=== PATIENT | female | born 1965 | race Caucasian/White ===

== ENCOUNTER 2016-12-15 21:41 | Emergency (ER) ==
[2016-12-15] MEDS ORDERED: CIPRO 0.3% OPTH SOL OP STA (22:02)
[2016-12-15 22:05] VITALS: BP 137/87; TEMP 97.2; BMI 24.8
--- NOTE | 2016-12-15 22:29 | ED.PDOC ---
General ED Provider: Dr. SAUMYA GUZMÁN Chief Complaint: Eye Problem Stated Complaint: Patient states she started having eye irritation on the right this morning. It is itchy and uncomfortable. Denies any contact with any persons with Conjunctivitis. Denies any changes in vision. Time Seen by Physician: 22:27 Mode of Arrival: Walk-In Information Source: Patient Exam Limitations: No limitations Nursing and Triage Documentation Reviewed and Agree: Yes EENT Complaint Exam - Eye Complaint/Exam Onset/Duration: 1 day Symptoms Are: Still present Timing: Constant Review of Systems - Review Of Systems Constitutional: Reports: No symptoms Eyes: Reports: Drainage, Photophobia, Contact lenses Ears, Nose, Mouth, Throat: Reports: No symptoms Respiratory: Reports: No symptoms Cardiac: Reports: No symptoms GI: Reports: No symptoms : Reports: No symptoms Musculoskeletal: Reports: No symptoms Skin: Reports: No symptoms Neurological: Reports: No symptoms Endocrine: Reports: No symptoms Hematologic/Lymphatic: Reports: No symptoms All Other Systems: Reviewed and Negative Past Medical History - Past Medical History Previously Healthy: Yes Endocrine: Reports: None Cardiovascular: Reports: Hypertension, Other (irrgular hertbeat ) Respiratory: Reports: None Hematological: Reports: None Gastrointestinal: Reports: None Genitourinary: Reports: Kidney stones Neuro/Psych: Reports: Migraine Musculoskeletal: Reports: None Cancer: Reports: None Last Menstrual Period: 20 YEARS AGO Other Pertinent Past Medical History: insomina - Surgical History General Surgical History: Reports: Hysterectomy (partial), Gastric Bypass, Other (Lithrotrypsy) - Family History Family History: Reports: None - Social History Smoking Status: Never smoker Hx Substance Use: No Alcohol Screening: None - Immunizations Tetanus Shot up to Date: Yes Physical Exam - Physical Exam Appearance: Well-appearing, No pain distress, Well-nourished Eyes: LOS, EOMI, Conjunctiva clear ENT: Ears normal, Nose normal, Oropharynx normal Respiratory: Airway patent, Breath sounds clear, Breath sounds equal, Respirations nonlabored Cardiovascular: RRR, Pulses normal, No rub, No murmur GI/: Soft, Nontender, No masses, Bowel sounds normal, No Organomegaly Musculoskeletal: Normal strength, ROM intact, No edema, No calf tenderness Skin: Warm, Dry, Normal color Neurological: Sensation intact, Motor intact, Reflexes intact, Cranial nerves intact, Alert, Oriented Psychiatric: Affect appropriate, Mood appropriate Critical Care Note - Critical Care Note Total Time (mins): 0 Course - Course Orders, Labs, Meds: Orders Category Date Time Status Ciprofloxacin Opth Asya [Cipro 0.3% Opth Asya] MEDS 12/15/16 22:02 Stat 2 drop OP ONCE STA Medications Discontinued Medications Generic Name Dose Route Start Last Admin Trade Name Freapolinar PRN Reason Stop Dose Admin Ciprofloxacin 2 drop 12/15/16 22:02 12/15/16 22:15 Cipro 0.3% Opth Asya OP 12/15/16 22:03 2 drop ONCE STA Administration Vital Signs: Temp Pulse Resp BP Pulse Ox 12/15/16 21:43 97.2 F L 61 20 137/87 100 Departure - Departure Time of Disposition: 22:29 Disposition: HOME SELF-CARE Discharge Problem: Acute bacterial conjunctivitis of both eyes Instructions: Conjunctivitis (ED) Condition: Fair Pt referred to PMD for follow-up: Yes Additional Instructions: Use eye 1 eye drop to each eye every 2 hours for 6 hours then every 4 hours for 12 hours then every 6 hours for 8 days, Follow up with your eye doctor in 2-3 days return if worse. Allergies/Adverse Reactions: Allergies No Known Drug Allergies Adverse Reaction (Verified 12/15/16 21:52) Home Medications: Ambulatory Orders Nitroglycerin 0.4 mg SL DIRECTED PRN 12/15/16 Disposition Discussed With: Patient
== END 2016-12-15 22:39 | disposition home or self-care (01) ==
LOC: ED 21:41
DX: H10.33 Unspecified acute conjunctivitis, bilateral (principal)
CPT/HCPCS: 99282

== ENCOUNTER 2016-12-23 12:55 | Emergency (ER) ==
[2016-12-23 13:02] VITALS: BP 135/84; TEMP 97.7; BMI 30.5
--- NOTE | 2016-12-23 13:11 | ED.PDOC ---
General ED Provider: Dr. MELVIN ZHU-ER Chief Complaint: Eye Problem Stated Complaint: my eye is draining and itching Time Seen by Physician: 13:09 Mode of Arrival: Walk-In Information Source: Patient Exam Limitations: No limitations Primary Care Provider: MELVIN ZHU Nursing and Triage Documentation Reviewed and Agree: Yes EENT Complaint Exam - Eye Complaint/Exam Onset/Duration: 24hrs Symptoms Are: Still present Timing: Constant Initial Severity: Mild Current Severity: Mild Location: Discreet, Right Character: Denies: Sharp, Dull, Throbbing, Foreign body sensation Aggravating: Denies: Blinking Alleviating: Reports: None Associated Signs and Symptoms: Reports: Clear drainage. Denies: Photophobia, Purulent drainage, Vision impairment, Fever, Swelling Related History: Reports: Similar episode Eye Surgical History: Reports: None Penetrating Injury Risk Factors: None Globe Rupture Risk Factors: None Acute Glaucoma Risk Factors: None Optic Artery Occlusion Risk Factors: None Visual Field: Normal Extraocular Movement: Normal Orbit Findings: Normal Globe Findings: Intact Lid Findings: Normal Conjunctival Findings: Red, Exudate Corneal Findings: Clear Fundi: Normal Slit Lamp Used: No Differential Diagnoses: Conjunctivitis Review of Systems - Review Of Systems Constitutional: Reports: No symptoms Eyes: Reports: Drainage, Inflammation, Contact lenses Ears, Nose, Mouth, Throat: Reports: No symptoms Respiratory: Reports: No symptoms Cardiac: Reports: No symptoms GI: Reports: No symptoms : Reports: No symptoms Musculoskeletal: Reports: No symptoms Skin: Reports: No symptoms Neurological: Reports: No symptoms Endocrine: Reports: No symptoms Hematologic/Lymphatic: Reports: No symptoms All Other Systems: Reviewed and Negative Past Medical History - Past Medical History Previously Healthy: Yes Endocrine: Reports: None Cardiovascular: Reports: Hypertension, Other (irrgular hertbeat ) Respiratory: Reports: None Hematological: Reports: None Gastrointestinal: Reports: None Genitourinary: Reports: Kidney stones Neuro/Psych: Reports: Migraine Musculoskeletal: Reports: None Cancer: Reports: None Last Menstrual Period: N/A Other Pertinent Past Medical History: insomina - Surgical History General Surgical History: Reports: Hysterectomy (partial), Gastric Bypass, Other (Lithrotrypsy) - Family History Family History: Reports: None - Social History Smoking Status: Former smoker Hx Substance Use: No Alcohol Screening: None - Immunizations Tetanus Shot up to Date: Yes Physical Exam - Physical Exam Appearance: Well-appearing, No pain distress, Well-nourished Eyes: LOS, EOMI, Conjunctiva inflammed ENT: Ears normal, Nose normal, Oropharynx normal Neck: Supple Respiratory: Airway patent, Breath sounds clear, Breath sounds equal, Respirations nonlabored Cardiovascular: RRR GI/: Soft Musculoskeletal: Normal strength, ROM intact, No edema, No calf tenderness Skin: Warm, Dry, Normal color Neurological: Sensation intact Psychiatric: Affect appropriate, Mood appropriate Critical Care Note - Critical Care Note Total Time (mins): 0 Course - Course Vital Signs: Temp Pulse Resp BP Pulse Ox 12/23/16 12:56 97.7 F 77 16 135/84 97 Departure - Departure Time of Disposition: 13:10 Disposition: HOME SELF-CARE Discharge Problem: Conjunctivitis Qualifiers: Conjunctivitis type: acute Acute conjunctivitis type: unspecified Laterality: right Qualified Code(s): H10.31 - Unspecified acute conjunctivitis, right eye Instructions: Conjunctivitis (ED) Condition: Good Pt referred to PMD for follow-up: Yes Additional Instructions: ciloxan eye drops 1 drop into the eye tid x 5 days--patanol eye drops 1 drop into the eye tid x 5 dasy..avoid contact lenses--you must see eye doctor tomorrow Allergies/Adverse Reactions: Allergies No Known Drug Allergies Adverse Reaction (Verified 12/15/16 21:52) Home Medications: Ambulatory Orders Nitroglycerin 0.4 mg SL DIRECTED PRN 12/15/16 Disposition Discussed With: Patient
== END 2016-12-23 13:20 | disposition home or self-care (01) ==
LOC: ED 12:55
DX: H10.31 Unspecified acute conjunctivitis, right eye (principal)
CPT/HCPCS: 99282

== ENCOUNTER 2017-03-15 10:48 | Emergency (ER) ==
[2017-03-15 11:00] VITALS: BP 145/101; TEMP 97.7; BMI 26.1
[2017-03-15] MEDS ORDERED: MORPHINE 2 MG/ML SYRINGE IM STA (11:11)
[2017-03-15] MEDS ORDERED: ZOFRAN 4 MG/2 ML IM STA (11:11)
--- NOTE | 2017-03-15 12:45 | CT ---
EXAM: CT cervical spine. HISTORY: Sharp cervical pain with known injury. TECHNIQUE: CT cervical spine without contrast. Detailed axial sections. Coronal and sagittal re-fo rmations. COMPARISON: None FINDINGS: Normal alignment and vertebral body height. Normal bone density. No fracture or acute subluxation. Facet joints are covered. Lateral masses of C1 and C2 are normally aligned and the odontoid process is intact. There is no paraspinal hematoma. IMPRESSION: Within normal limits
--- NOTE | 2017-03-15 12:49 | CT ---
EXAM: CT right shoulder HISTORY: Abrupt onset sharp shoulder pain without trauma. TECHNIQUE: CT right shoulder without contrast. Multiplanar images. FINDINGS: No comparison CT. The bone joints appear normal. There is no joint effusion, subluxation, separation or dislocation. No fracture is seen. The visualized ribs are within normal limits. Peripheral soft tissues appear n ormal. The lung watson which are within the field of view are clear. IMPRESSION: Within normal limits
--- NOTE | 2017-03-15 14:29 | ED.PDOC ---
General ED Provider: Dr. WILLIAN WADDELL Chief Complaint: Shoulder Pain/Injury Stated Complaint: neck and right shoulder pain Time Seen by Physician: 11:00 Mode of Arrival: Walk-In Information Source: Patient Exam Limitations: No limitations Primary Care Provider: MELVIN ZHU Nursing and Triage Documentation Reviewed and Agree: Yes Reviewed sepsis parameters & appropriate labs ordered?: Yes (seen with marian at all times no injury ) System Inflammatory Response Syndrome: Not Applicable Sepsis Protocol: For patient's 13 years and over: Temp is 96.8 and below OR 101 and greater Pulse >90 BPM Resp >20/minute Acutely Altered Mental Status Are patient's symptoms suggestive of a new infection, such as: -Pneumonia -Skin, Soft Tissue -Endocarditis -UTI -Bone, Joint Infection -Implantable Device -Acute Abdominal Infection -Wound Infection -Meningitis -Blood Stream Catheter Infection -Unknown System Inflammatory Response Syndrome: Not Applicable Musculoskeletal Complaint Exam - Shoulder Pain Complaint/Exam Mechanism of Injury: Reports: No known trauma, Other (right side ) Onset/Duration: 3 days Symptoms Are: Still present Timing: Intermittent Episodes Lasting: seconds Initial Severity: Mild Current Severity: None Character: Reports: Aching, Spasmodic Alleviating: Reports: Rest Aggravating: Reports: None Associated Signs and Symptoms: Denies: Swelling, Redness, Bruising, Fever, Weakness, Numbness, Tingling Related History: Reports: Similar episode Non-Orthopedic Risk Factors: Reports: None DVT Risk Factors: Reports: None Related Surgical History: Reports: None (with marian in the room documented strong pulses present in right upper ext) Differential Diagnoses: Sprain, Strain, Bursitis Review of Systems - Review Of Systems Constitutional: Reports: No symptoms Eyes: Reports: No symptoms Ears, Nose, Mouth, Throat: Reports: No symptoms Respiratory: Reports: No symptoms Cardiac: Reports: No symptoms GI: Reports: No symptoms : Reports: No symptoms Musculoskeletal: Reports: Joint pain (SHOULDER RIGHT) Skin: Reports: No symptoms Neurological: Reports: No symptoms Endocrine: Reports: No symptoms Hematologic/Lymphatic: Reports: No symptoms All Other Systems: Reviewed and Negative Past Medical History - Past Medical History Previously Healthy: Yes Endocrine: Reports: None Cardiovascular: Reports: Hypertension, Other (irrgular hertbeat ) Respiratory: Reports: None Hematological: Reports: None Gastrointestinal: Reports: None Genitourinary: Reports: Kidney stones Neuro/Psych: Reports: Migraine Musculoskeletal: Reports: None Cancer: Reports: None Last Menstrual Period: unknown Other Pertinent Past Medical History: insomina - Surgical History General Surgical History: Reports: Hysterectomy (partial), Gastric Bypass, Other (Lithrotrypsy) - Family History Family History: Reports: None - Social History Smoking Status: Never smoker Hx Substance Use: No Alcohol Screening: Occasionally Physical Exam - Physical Exam Appearance: Well-appearing, No pain distress, Well-nourished Eyes: LOS, EOMI, Conjunctiva clear ENT: Ears normal, Nose normal, Oropharynx normal Respiratory: Airway patent, Breath sounds clear, Breath sounds equal, Respirations nonlabored Cardiovascular: RRR, Pulses normal, No rub, No murmur GI/: Soft, Nontender, No masses, Bowel sounds normal, No Organomegaly Musculoskeletal: Normal strength, ROM intact, No edema, No calf tenderness Skin: Warm, Dry, Normal color Neurological: Sensation intact, Motor intact, Reflexes intact, Cranial nerves intact, Alert, Oriented Psychiatric: Affect appropriate, Mood appropriate Interpretation - Radiology Interpretation Radiology Interpretation By: Radiologist Radiology Results: No acute changes - Staff Writer Rate: Normal Rhythm: Sinus Ectopy: None - EKG Interpretation Rate: Normal Rhythm: Sinus Ectopy: None Hermon: NL ST Segment: Normal Critical Care Note - Critical Care Note Total Time (mins): 0 Course - Course Hematology/Chemistry: 03/15/17 13:30 03/15/17 13:30 Orders, Labs, Meds: Lab Review 03/15/17 03/15/17 13:30 13:30 WBC 6.39 RBC 4.55 Hgb 13.3 Hct 39.8 MCV 87.5 MCH 29.2 MCHC 33.4 RDW Coeff of Stanislav 12.6 Plt Count 285 Immature Gran % (Auto) 0.2 Neut % (Auto) 61.3 Lymph % (Auto) 30.2 Alcorn % (Auto) 6.6 Eos % (Auto) 0.9 Baso % (Auto) 0.8 Immature Gran # (Auto) 0.0 Neut # 3.9 Lymph # 1.9 Alcorn # 0.4 Eos # 0.1 Baso # 0.1 Sodium 139 Potassium 4.0 Chloride 104 Carbon Dioxide 27 Anion Gap 12.0 BUN 18 Creatinine 0.79 Estimated GFR (MDRD) 77.00 BUN/Creatinine Ratio 22.78 Glucose 76 Calcium 9.1 Total Bilirubin 0.6 AST 18 ALT 16 Alkaline Phosphatase 93 Total Creatine Kinase 67 Troponin I < 0.0100 Total Protein 7.2 Albumin 3.7 Globulin 3.5 Albumin/Globulin Ratio 1.06 Orders Category Date Time Status EKG-(ED ONLY) Stat CARDIO 03/15/17 13:20 Completed CBC W/ AUTO DIFF Stat LAB 03/15/17 13:30 Completed COMPREHENSIVE METABOLIC PANEL Stat LAB 03/15/17 13:30 Completed CREATINE KINASE Stat LAB 03/15/17 13:30 Completed TROPONIN I Stat LAB 03/15/17 13:30 Completed Morphine Sulfate [Morphine 2 mg/ml Syringe] MEDS 03/15/17 11:11 Discontinued 4 mg IM ONCE STA Ondansetron HCl/Pf [Zofran 4 mg/2 ml] MEDS 03/15/17 11:11 Discontinued 4 mg IM ONCE STA CT CERVICAL SPINE W/O CONTRAST Stat RADS 03/15/17 11:[address] SHOULDER RIGHT W/O CONTRAST Stat RADS 03/15/17 11:12 Completed Medications Discontinued Medications Generic Name Dose Route Start Last Admin Trade Name Freq PRN Reason Stop Dose Admin Morphine Sulfate 4 mg 03/15/17 11:11 03/15/17 11:20 Morphine 2 Mg/Ml Syringe IM 03/15/17 11:12 4 mg ONCE STA Administration Ondansetron HCl 4 mg 03/15/17 11:11 03/15/17 11:28 Zofran 4 Mg/2 Ml IM 03/15/17 11:12 4 mg ONCE STA Administration Vital Signs: Temp Pulse Resp BP Pulse Ox 03/15/17 10:49 97.7 F 75 20 145/101 H 97 Departure - Departure Time of Disposition: 14:29 (seen with RN AT ALL TIMES) Disposition: HOME SELF-CARE Discharge Problem: Shoulder pain Radiculopathy Qualifiers: Spinal region: unspecified Qualified Code(s): M54.10 - Radiculopathy, site unspecified Instructions: Cervical Radiculopathy (ED) Condition: Good Pt referred to PMD for follow-up: Yes IPMP verified?: Yes Additional Instructions: Please call your Family Physician as soon as possible to schedule a follow-up appointment. Allergies/Adverse Reactions: Allergies No Known Drug Allergies Adverse Reaction (Verified 12/15/16 21:52) Home Medications: Ambulatory Orders Nitroglycerin 0.4 mg SL DIRECTED PRN 12/15/16 Orphenadrine Citrate [Norflex] 100 mg PO Q12HR PRN 03/15/17 Temazepam [Restoril] 7.5 mg PO BEDTIME 03/15/17 Disposition Discussed With: Patient
== END 2017-03-15 14:42 | disposition home or self-care (01) ==
LOC: ED 10:48
DX: M54.12 Radiculopathy, cervical region (principal)
CPT/HCPCS: 36415; 80053; 82550; 84484; 85025; 93005; 93010; 96372; 99283

== ENCOUNTER 2017-09-18 07:13 | Outpatient (CLI) | END 2017-09-18 07:14 | disposition home or self-care (01) | LOC: LAB 07:13 | PROVIDERS: ATTEND Family Medicine | DX: R63.5 Abnormal weight gain (principal) | CPT/HCPCS: 36415; 80053; 80061; 83036; 83525; 84443; 85025 ==

== ENCOUNTER 2017-10-21 16:29 | Outpatient (CLI) | payer OTHER | END 2017-10-21 16:30 | disposition home or self-care (01) | LOC: LAB 16:29 | PROVIDERS: ATTEND Family Medicine | DX: R53.83 Other fatigue (principal) | CPT/HCPCS: 36415; 80053; 82607; 82728; 83540; 85025 ==

== ENCOUNTER 2018-05-20 09:04 | Outpatient (CLI) | END 2018-05-20 09:05 | disposition home or self-care (01) | LOC: RHC-LAB 09:04 → FCC-LAB 09:05 | PROVIDERS: ATTEND Family Medicine | DX: J02.0 Streptococcal pharyngitis (principal); J10.1 Influenza due to other identified influenza virus with other respiratory manifestations | CPT/HCPCS: 87502; 87651 ==